=== PATIENT | female | born 1975 | race Caucasian/White ===

== ENCOUNTER 2016-10-09 09:50 | Emergency (ER) | payer OTHER ==
[~2016-10-09] VITALS: Ht 157.5 cm; Wt 63.5 kg
[2016-10-09 10:07] VITALS: BP 138/92
--- NOTE | 2016-10-09 10:09 | ED GENERAL ADULT ---
History of Present Illness General Chief Complaint: General Adult Stated Complaint: 2ND RABIES SHOT Source: patient, family, old records Exam Limitations: no limitations Vital Signs & Intake/Output Vital Signs & Intake/Output Vital Signs Date Time Temp Pulse Resp B/P Pulse O2 O2 Flow FiO2 Ox Delivery Rate 10/09 1007 97.3 96 16 138/92 97 Room Air Allergies Coded Allergies: No Known Allergies (10/05/16) Triage Note: PT HERE FOR 2ND RABIES SHOT. PT HAD 2 BATS IN HER HOUSE. Triage Nurses Notes Reviewed? yes : No Patient currently breastfeeds: No HPI: Here for second rabies vaccine series, has no complaints (NATALIIA GARCIA) Past History Travel History Traveled to [place] past 21 day No Medical History Any Pertinent Medical History? 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 No (NATALIIA GARCIA) Review of Systems Review of Systems Constitutional: Reports: see HPI. EENTM: Reports: no symptoms. Respiratory: Reports: no symptoms. Cardiovascular: Reports: no symptoms. GI: Reports: no symptoms. Genitourinary: Reports: no symptoms. Musculoskeletal: Reports: no symptoms. Skin: Reports: no symptoms. Neurological/Psychological: Reports: no symptoms. Hematologic/Endocrine: Reports: no symptoms. Immunologic/Allergic: Reports: no symptoms. All Other Systems: Reviewed and Negative (NATALIIA GARCIA) Physical Exam Physical Exam General Appearance: well developed/nourished Comments: Well-developed well-nourished no apparent distress. HEENT: Atraumatic, extraocular motion intact Neck: Supple, no lymphadenopathy Back: Nontender Respiratory: No respiratory distress Extremities: No edema, full range of motion Neuro: Alert and oriented x3 Psych: Mood affect normal, normal memory normal judgment. Skin: Warm and dry, no rash on exposed skin Core Measures ACS in differential dx? No CVA/TIA Diagnosis: No Severe Sepsis Present: No Septic Shock Present: No (NATALIIA GARCIA) Progress Differential Diagnoses I considered the following diagnoses in my evaluation of the patient: None Plan of Care: Given rabies vaccine, follow-up as scheduled Initial ED EKG: none (NATALIIA GARCIA) Departure Departure Disposition: HOME OR SELF CARE Condition: Stable Clinical Impression Primary Impression: Rabies, need for prophylactic vaccination against Referrals: CRYSTAL ORELLANA,MANDY (PCP/Family) Referred to [facility] as new patient No Additional Instructions: return as scheduled for your next injection Departure Forms: Customer Survey General Discharge Information (NATALIIA GARCIA) PA/CISTERN ROOM WORKING SUPERVISOR Co-Sign Statement Statement: ED Attending supervision documentation- [] I saw and evaluated the patient. I have also reviewed all the pertinent lab results and diagnostic results. I agree with the findings and the plan of care as documented in the PA's/CISTERN ROOM WORKING SUPERVISOR's documentation. [X] I have reviewed the ED Record and agree with the PA's/CISTERN ROOM WORKING SUPERVISOR's documentation. [] Additions or exceptions (if any) to the PAs/CISTERN ROOM WORKING SUPERVISOR's note and plan are summarized below: [] (MANJIT ORELLANA,TISH) Critical Care Note Critical Care Note Critical Care Time: non-applicable (NATALIIA GARCIA)
== END 2016-10-09 10:24 ==
LOC: ERH 09:50
DX: Z20.3 Contact with and (suspected) exposure to rabies (principal)
CPT/HCPCS: 90471; 99281

== ENCOUNTER 2016-10-18 10:48 | Emergency (ER) | payer OTHER ==
[2016-10-18 11:03] VITALS: BP 159/100
--- NOTE | 2016-10-18 11:15 | ED GENERAL ADULT ---
History of Present Illness General Chief Complaint: General Adult Stated Complaint: 3RD RABIES SHOT Source: patient, old records Exam Limitations: no limitations Vital Signs & Intake/Output Vital Signs & Intake/Output Vital Signs Date Time Temp Pulse Resp B/P Pulse O2 O2 Flow FiO2 Ox Delivery Rate 10/18 1103 98.1 100 20 159/100 99 Room Air Allergies Coded Allergies: No Known Allergies (10/05/16) Triage Note: PT PRESENTS TO ER FOR 3RD RABIES VACCINES Triage Nurses Notes Reviewed? yes : No Patient currently breastfeeds: No HPI: Here for third rabies vaccine, no complaints (NATALIIA GARCIA) Past History Travel History Traveled to [place] past 21 day No Medical History Any Pertinent Medical History? 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 No (NATALIIA GARCIA) Review of Systems Review of Systems Constitutional: Reports: see HPI. EENTM: Reports: no symptoms. Respiratory: Reports: no symptoms. Cardiovascular: Reports: no symptoms. GI: Reports: no symptoms. Genitourinary: Reports: no symptoms. Musculoskeletal: Reports: no symptoms. Skin: Reports: no symptoms. Neurological/Psychological: Reports: no symptoms. Hematologic/Endocrine: Reports: no symptoms. Immunologic/Allergic: Reports: no symptoms. All Other Systems: Reviewed and Negative (NATALIIA GARCIA) Physical Exam Physical Exam General Appearance: well developed/nourished Comments: Well-developed well-nourished no apparent distress. HEENT: Atraumatic, extraocular motion intact Neck: Supple, no lymphadenopathy Back: Nontender Respiratory: No respiratory distress Extremities: No edema, full range of motion Neuro: Alert and oriented x3 Psych: Mood affect normal, normal memory normal judgment. Skin: Warm and dry, no rash on exposed skin Core Measures ACS in differential dx? No CVA/TIA Diagnosis: No Severe Sepsis Present: No Septic Shock Present: No (NATALIIA GARCIA) Progress Differential Diagnoses I considered the following diagnoses in my evaluation of the patient: None Plan of Care: Current Medications Sig/Oscar Start time Last Medication Dose Stop Time Status Admin Rabies Vaccine 1 SYR ONCE ONE 10/18 1115 AC (Rabies (Vaccine) 10/18 1116 Inj (1ML)) Initial ED EKG: none (NATALIIA GARCIA) Departure Departure Disposition: HOME OR SELF CARE Condition: Stable Clinical Impression Primary Impression: Rabies, need for prophylactic vaccination against Referrals: MANDY ROJAS MD (PCP/Family) Additional Instructions: return in 1 week for last vaccination Departure Forms: Customer Survey General Discharge Information (NATALIIA GARCIA) PA/PHLEBOTOMY MANAGER Co-Sign Statement Statement: ED Attending supervision documentation- [] I saw and evaluated the patient. I have also reviewed all the pertinent lab results and diagnostic results. I agree with the findings and the plan of care as documented in the PA's/PHLEBOTOMY MANAGER's documentation. [X] I have reviewed the ED Record and agree with the PA's/PHLEBOTOMY MANAGER's documentation. [] Additions or exceptions (if any) to the PAs/PHLEBOTOMY MANAGER's note and plan are summarized below: [] (MANJIT ORELLANA,TISH) Critical Care Note Critical Care Note Critical Care Time: non-applicable (NATALIIA GARCIA)
== END 2016-10-18 11:35 ==
LOC: ERH 10:48
DX: Z23 Encounter for immunization (principal)
CPT/HCPCS: 90471; 99281